=== PATIENT | male | born 2000 | race American Indian/Alaskan Native ===

== ENCOUNTER 2025-05-23 13:30 | Emergency (ER) | payer OTHER ==
[2025-05-23] MEDS ORDERED: Sodium Chloride 0.9% 10 ML Syringe FLUSH PRN (14:00)
== END 2025-05-23 15:47 | disposition home or self-care (01) ==
LOC: JD.ED 13:30
DX: J02.0 Streptococcal pharyngitis (principal); Z79.899 Other long term (current) drug therapy
CPT/HCPCS: 87651; 96360; 99283; J7030